=== PATIENT | female | born 1990 | race Two or more races ===

== ENCOUNTER 2022-02-01 21:08 | Emergency (ER) | payer OTHER ==
[~2022-02-01] VITALS: Ht 162.6 cm; Wt 78.0 kg
[~2022-02-01 21:08] MED LIST: PEPCID40 MG PO; PRENATAL1 TAB; ZOFRAN4 MG PO
[2022-02-02] MEDS ORDERED: PHENAGIL TABLE1 EACH PO (02:03)
[2022-02-02] MEDS ORDERED: DOLOGESIC 500-1 EACH PO (02:03)
== END 2022-02-02 02:09 ==
LOC: ER 21:08
DX: B34.9 Viral infection, unspecified (principal); Z20.822 Contact with and (suspected) exposure to COVID-19